=== PATIENT | male | born 1980 | race Caucasian/White ===

== ENCOUNTER 2019-12-19 15:39 | Emergency (ER) | payer OTHER, SELFPAY ==
--- NOTE | ~2019-12-19 | XR_ITS ---
XR finger 5th LT min 2V 12/19/2019 17:06 INDICATION: Left fifth finger pain PROCEDURE: 4 views left fifth finger COMPARISON: No prior studies for comparison. FINDINGS: Fracture, dislocation or subluxation is not identified. The soft tissues appear within norm al limits. No foreign bodies are identified. IMPRESSION: 1: NO ACUTE BONE OR JOINT ABNORMALITY IDENTIFIED. Reviewed, dictated and finalized at location A.
[2019-12-19 15:45] VITALS: BP 165/95; PULSE 73; RESP 14; TEMP 36.3; O2SAT 97
--- NOTE | 2019-12-19 16:57 | ED.WOUNDLAC ---
HPI - Wound/Laceration General Chief Complaint: Wound/Laceration Stated Complaint: lac left pinky Time Seen by Provider: 12/19/19 16:02 Source: patient Mode of arrival: ambulatory Limitations: no limitations History of Present Illness HPI narrative: This is a 39 year old male that presents to the ER for laceration to the left 5th finger sustained just prior to arrival. Reports he was doing dishes and a glass broke. Reports a laceration to the little finger. Reports tingling to the tip of the finger. Reports he is up-to-date on tetanus. Denies decreased ROM or numbness. Related Data Allergies Allergy/AdvReac Type Severity Reaction Status Date / Time No Known Allergies Allergy Verified 12/19/19 17:06 Review of Systems Review of Systems: Narrative: CONSTITUTIONAL: Denies fever SKIN: Reports laceration MUSCULOSKELETAL: Denies joint pain, or myalgia. NEUROLOGIC: Denies numbness All systems reviewed & are unremarkable except as noted in HPI and below PMFSH Past Medical History Medical History (Updated 12/19/19 @ 19:22 by Jackelin Guo PA-C) No active medical problems Social History Social History (Updated 12/19/19 @ 16:59 by Jackelin Guo PA-C) Substance use type: marijuana Gender identity (if verbalized by the patient): Male Exam Narrative: Exam Narrative: GENERAL: Well-appearing, well-nourished, and in no acute distress. HEAD: Normocephalic, atraumatic. EYES: EOMI. EXTREMITIES: Normal range of motion. Left 5th finger with 1cm linear laceration into subcutaneous tissue over the proximal phalanx. Normal sensation. SKIN: Warm, dry, no rash. NEURO: No focal deficits. Alert and oriented x3. PSYCH: Normal mood and affect Course Vital Signs Vital signs: Vital Signs Temperature 97.3 F L 12/19/19 15:45 Pulse Rate 73 12/19/19 15:45 Respiratory Rate 14 12/19/19 15:45 Blood Pressure 165/95 H 12/19/19 15:45 Pulse Oximetry 97 12/19/19 15:45 Temperature 97.3 F L 12/19/19 15:45 Pulse Rate 73 12/19/19 15:45 Respiratory Rate 14 12/19/19 15:45 Blood Pressure 165/95 H 05/29/20 15:45 Pulse Oximetry 97 05/29/20 15:45 Procedures Laceration Laceration 1: Date: 12/19/19 Time: 19:19 Site: hand Side (If applicable): left Size (cm): 1 Description: linear Depth: simple, single layer Local Anesthetic: lidocaine 1% Amount of anesthesia used (mL): 2 Pre-repair: irrigated ====== Skin Level ====== Skin layer closed with: nylon Size (cm): 5-0 Number of sutures: 2 Technique: simple, interrupted ====== Subcutaneous Layer ====== ====== Muscle Layer ====== ====== Tendon Layer ====== Dressing: Antibiotic ointment, Telfa, Kerlix and Coban MDM - Wound/Laceration MDM Narrative Medical decision making narrative: Patient presents the emergency department for laceration to left fifth finger sustained just prior to arrival. Laceration was irrigated and closed with sutures. Left fifth finger x-rays without acute abnormalities. Patient is up-to-date on tetanus. He was educated on wound care. He is to follow-up with primary care doctor. He was given warnings to return to the ER Imaging Data Radiologist's impression: ITS Impressions Finger X-Ray 12/19/19 17:13 IMPRESSION: 1: NO ACUTE BONE OR JOINT ABNORMALITY IDENTIFIED. Critical Care Time Critical Care Time Critical Care Time: No Discharge Plan Discharge Clinical Impression: Laceration Patient Disposition: Home, Self-Care Condition: Stable Instructions: Care For Your Stitches (ED), Laceration (ED) Additional Instructions: Return to the emergency department if you experience fever, redness or swelling of your wound, abnormal drainage from your wound, or any other symptoms that are concerning to you. Apply antibiotic ointment daily. Do not soak the wound. Clean with mild soap and water tanvir
[2019-12-19] MEDS: IBUPROFEN 600 MG TABLET PO (17:06)
[2019-12-19 19:20] VITALS: BP 159/109; PULSE 71; RESP 16; TEMP 36.9; O2SAT 98
== END 2019-12-19 19:28 | disposition home or self-care (01) ==
PROVIDERS: Emergency Provider Emergency Medicine; PCP Internal Medicine
DX: S61.217A Laceration without foreign body of left little finger without damage to nail, initial encounter (principal); W25.XXXA Contact with sharp glass, initial encounter
CPT/HCPCS: 12001; 73140; 99282; A9270

== ENCOUNTER 2021-11-13 18:09 | Emergency (ER) | payer BC, SELFPAY ==
[2021-11-13 18:22] VITALS: BP 147/97; PULSE 82; RESP 18; TEMP 36.4; O2SAT 97
--- NOTE | 2021-11-13 19:29 | ED.WOUNDLAC ---
HPI - Wound/Laceration General Chief Complaint: Wound/Laceration Stated Complaint: finger laceration Time Seen by Provider: 11/13/21 19:00 History of Present Illness HPI narrative: 41-year-old male presents to the emergency room for evaluation of a finger laceration. Patient states he was changing the battery on his computer, when he suffered a laceration to the index finger of his left hand. Related Data Home Medications Medication Instructions Recorded Confirmed albuterol sulfate 2 puff INHALATION Q4H PRN 11/13/21 Allergies Allergy/AdvReac Type Severity Reaction Status Date / Time barley Allergy Unknown Verified 11/13/21 19:53 peanut Allergy Unknown Verified 11/13/21 19:53 sesame seed Allergy Unknown Verified 11/13/21 19:53 tree nut Allergy Unknown Verified 11/13/21 19:53 wheat Allergy Unknown Verified 11/13/21 19:53 Review of Systems Review of Systems: CONSTITUTIONAL: Denies fever, chills, or sweats. EYES: Denies visual changes, redness, or discharge. ENT: Denies rhinorrhea, congestion, sore throat, or otalgia. CARDIOVASCULAR: Denies chest pain, palpitations, or edema. RESPIRATORY: Denies cough or dyspnea. GASTROINTESTINAL: Denies abdominal pain, nausea, vomiting, or diarrhea. GENITOURINARY: Denies dysuria or hematuria. SKIN: Laceration left finger MUSCULOSKELETAL: Denies back pain, joint pain, or myalgia. NEUROLOGIC: Denies headache, numbness, dizziness, or weakness. PSYCHIATRIC: Denies anxiety or depression. PMFSH Past Medical History Medical History No active medical problems Social History Social History Substance use type: marijuana Gender identity (if verbalized by the patient): Male Exam Narrative: GENERAL: Well-appearing, well-nourished, and in no acute distress. HEAD: Normocephalic, atraumatic. EYES: PERRLA and EOMI. CHEST: Clear to auscultation. No respiratory distress. No wheezes rales or rhonchi HEART: Regular rate and rhythm. No murmur heard. Normal peripheral pulses. ABDOMEN: Soft, nontender, nondistended, normal active bowel sounds. EXTREMITIES: Normal range of motion. No edema. Left index finger: The MCP, PIP, and DIP joints. No joint laxity SKIN: Laceration to the medial surface of the left index finger NEURO: No focal deficits. Alert and oriented x3. PSYCH: Normal mood and affect. Course Vital Signs Vital signs: Vital Signs Temperature 36.4 C 11/13/21 18:22 Pulse Rate 82 11/13/21 18:22 Respiratory Rate 18 11/13/21 18:22 Blood Pressure 147/97 H 11/13/21 18:22 Pulse Oximetry 97 11/13/21 18:22 Temperature 36.4 C 11/13/21 18:22 Pulse Rate 82 11/13/21 18:22 Respiratory Rate 18 11/13/21 18:22 Blood Pressure 147/97 H 11/13/21 18:22 Pulse Oximetry 97 11/13/21 18:22 Procedures Laceration Laceration 1: Date: 11/13/21 Time: 20:53 Site: upper extremity Side (If applicable): left Size (cm): 3 Description: flap Depth: simple, single layer Local Anesthetic: lidocaine 1% Amount of anesthesia used (mL): 3 Pre-repair: irrigated and wound margins revised ====== Skin Level ====== Skin layer closed with: nylon Size (cm): 6-0 Number of sutures: 6 Technique: simple, interrupted ====== Subcutaneous Layer ====== ====== Muscle Layer ====== ====== Tendon Layer ====== Dressing: non-stick gauze applied to laceration Discharge Plan Discharge Clinical Impression: Laceration Patient Disposition: Home, Self-Care Condition: Stable Instructions: Antibiotic Form, Laceration (ED) Additional Instructions: Keep wound clean and dry. May apply antibiotic ointment as needed. Stitches to come out in 10 to 14 days. Tylenol and ibuprofen for any pain. Monitor for signs of infection which include: Redness, drainage, swellin
== END 2021-11-13 21:46 | disposition home or self-care (01) ==
PROVIDERS: Emergency Provider Nurse Practitioner Family
DX: S61.211A Laceration without foreign body of left index finger without damage to nail, initial encounter (principal); W26.9XXA Contact with unspecified sharp object(s), initial encounter
CPT/HCPCS: 12002; 99282

== ENCOUNTER 2022-05-18 07:26 | Emergency (ER) | payer BC, SELFPAY ==
--- NOTE | ~2022-05-18 | XR_ITS ---
EXAMINATION: XR chest 2V 05/18/2022 08:31 INDICATION: Chest pressure, anxiety and hypertension PROCEDURE: PA and lateral views of the chest COMPARISON: No prior studies for comparison. FINDINGS: The lungs are clear. The cardiomediastinal silhouette is within normal limits. There are no pleural effusions. There is no pneumothorax suspected. There is dextroscoliosis of the thoracic spine. IMPRESSION: 1: NO ACUTE CARDIOPULMONARY DISEASE. Reviewed, dictated and finalized at location B.
--- NOTE | 2022-05-18 07:34 | ECG_ITS ---
Measurements Intervals [place] Rate: 85 P: 50 MO: 153 QRS: 24 QRSD: 113 T: 25 QT: 389 QTc: 463 Interpretive Statements SINUS RHYTHM INCOMPLETE RIGHT BUNDLE BRANCH BLOCK [90+ ms QRS DURATION, TERMINAL R IN V1/V2, 40+ ms S IN I/aVL/V4/V5/V6] NO PREVIOUS ECG AVAILABLE FOR COMPARISON Electronically Signed On 05-18-2022 14:27:27 CDT by Bc Price M.D.
[2022-05-18 07:37] VITALS: BP 183/115; PULSE 87; RESP 14; TEMP 36.6; O2SAT 100
[2022-05-18 07:41] VITALS: PULSE 84
[2022-05-18 07:50] LABS: Basophils Percent Auto 0.4 % (0.2-1.2); Eosinophils Percent Auto 0.4 % (0-4.4); Hematocrit 41.7 % (42.0-52.0); Hemoglobin 15.3 g/dL (14.0-18.0); Immature Granulocyte Absolute 0.03 K/mm3 (0.00-0.031); Immature Granulocyte Percent A 0.3 % (0-0.5); Lymphocytes Absolute Auto 1.67 K/mm3 (0.9-3.2); Lymphocytes Percent Auto 17.8 % (18.3-44.2); Mean Corpuscular HGB Conc 36.7 g/dl (32-36); Mean Corpuscular Hemoglobin 33.2 pg (26-34); Mean Corpuscular Volume 90.5 fl (80-100); Mean Platelet Volume 10.1 fl (7.4-10.4); Monocytes Percent Auto 10.1 % (2.6-8.5); Neutrophils Absolute Auto 6.6 K/mm3 (1.3-6.7); Platelet Count Result 264 k/mm3 (150-375); Red Blood Count 4.61 M/mm3 (4.6-6.20); Red Cell Distribution Width 12.3 % (11.5-14.5); White Blood Count 9.4 K/mm3 (4.5-10.0)
--- NOTE | 2022-05-18 07:51 | ED.CHESTPAIN ---
HPI - Chest Pain General Chief Complaint: Chest Pain Stated Complaint: right sided CP Time Seen by Provider: 05/18/22 07:51 Source: patient Mode of arrival: ambulatory Limitations: no limitations History of Present Illness HPI narrative: 41 years old white male drove himself to hospital from home because of sudden onset of pain at the right side of the sternum started while sitting on the couch this morning at rest. Like tightness. No radiation. Patient denies aggravating or relieving factors. No family history of coronary artery disease, currently patient on vitamins, smokes marijuana occasionally, drinks almost daily, quite a bit of stress lately. He denies any fever, chills, nausea, vomiting, shortness of breath Related Data Home Medications Medication Instructions Recorded Confirmed albuterol sulfate 90 mcg/actuation 2 puff inhalation Q4H PRN Wheezing 11/13/21 aerosol inhaler Allergies Allergy/AdvReac Type Severity Reaction Status Date / Time barley Allergy Unknown Verified 05/18/22 07:40 peanut Allergy Unknown Verified 05/18/22 07:40 sesame seed Allergy Unknown Verified 05/18/22 07:40 tree nut Allergy Unknown Verified 05/18/22 07:40 wheat Allergy Unknown Verified 05/18/22 07:40 Review of Systems Review of Systems: All systems reviewed & are unremarkable except as noted in HPI and below PMFSH Past Medical History Medical History No active medical problems Social History Social History Substance use type: marijuana Gender identity (if verbalized by the patient): Male Exam Narrative: General appearance: Well-developed, well-nourished, restless, intermittent sighing Skin: Normal color Head: Normocephalic, nontraumatic Eyes: Clear conjunctiva ENT: Oropharynx normal, ears normal, nose normal Neck: Supple, nontender Chest and respiratory: Airway patent, no respiratory distress, no accessory muscle use Heart: Regular rate/rhythm Abdomen: Soft, nontender, no organomegaly, quiet bowel sounds Vascular: Normal peripheral pulses, normal capillary refill. 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 Vital Signs Vital signs: Vital Signs Temperature 36.6 C 05/18/22 07:37 Pulse Rate 87 05/18/22 07:37 Respiratory Rate 14 05/18/22 07:37 Blood Pressure 183/115 H 05/18/22 07:37 Pulse Oximetry 100 05/18/22 07:37 Temperature 36.6 C 05/18/22 07:37 Pulse Rate 72 05/18/22 09:30 Respiratory Rate 18 05/18/22 09:30 Blood Pressure 135/94 H 05/18/22 09:30 Pulse Oximetry 97 05/18/22 09:30 MDM - Chest Pain Differential Diagnosis Differential diagnosis: Likely costochondritis, chest pain and other (Anxiety-like symptoms) Lab Data Result diagrams: 05/18/22 07:44 05/18/22 07:44 Labs: Lab Results 05/18/22 05/18/22 05/18/22 Range/Units 07:44 07:44 07:44 WBC 9.4 (4.5-10.0) K/mm3 RBC 4.61 (4.6-6.20) M/mm3 Hgb 15.3 (14.0-18.0) g/dL Hct 41.7 L (42.0-52.0) % MCV 90.5 (80-100) fl MCH 33.2 (26-34) pg MCHC 36.7 H (32-36) g/dl RDW 12.3 (11.5-14.5) % Plt Count 264 (150-375) k/mm3 MPV 10
[2022-05-18 07:58] LABS: INR 1.1; Prothrombin Time 13.8 Seconds (11.1-14.7)
[2022-05-18 08:00] VITALS: BP 155/108; PULSE 81; RESP 16; O2SAT 100
[2022-05-18 08:00] LABS: Alanine Aminotransferase 161 U/L (6-50); Albumin Level 5.4 g/dL (3.5-5.1); Alkaline Phosphatase 75 U/L (38-126); Anion Gap 16 mmol/L (8-16); Aspartate Amino Transferase 85 U/L (17-59); Blood Urea Nitrogen 16 mg/dL (9-20); Calcium 9.3 mg/dL (8.4-10.2); Carbon Dioxide 24 mmol/L (22-30); Chloride 98 mmol/L (98-107); Estimated CRCL calculation 93 ml/min; Estimated Glomerular Filt Rate > 60; Glucose 111 mg/dL (65-110); Lipase 107 U/L (23-300); Potassium 3.3 mmol/L (3.4-5.0); Sodium 138 mmol/L (137-145)
[2022-05-18 08:12] LABS: Troponin I < 0.012 ng/mL (0.000-0.034)
[2022-05-18 08:19] LABS: D Dimer < 0.27 ug/mL (<0.48)
[2022-05-18 08:22] VITALS: PULSE 85
[2022-05-18] MEDS: METOPROLOL TARTRATE TAB 25 MG, METOPROLOL TARTRATE TAB 12.5 MG 37.5 MG PO (08:22)
--- NOTE | 2022-05-18 08:32 | PC.NURSE ---
Pt. returned from [facility] eating a [employer] breakfast bar. NAD.
[2022-05-18] MEDS: LORazepam INJ (*CRX) 2 MG/ML VIAL 1 MG IV PUSH (09:25)
[2022-05-18 09:30] VITALS: BP 135/94; PULSE 72; RESP 18; O2SAT 97
[2022-05-18 11:11] VITALS: BP 143/107; PULSE 70; RESP 16; O2SAT 98
[2022-05-18 11:36] LABS: Troponin I < 0.012 ng/mL (0.000-0.034)
== END 2022-05-18 11:20 | disposition home or self-care (01) ==
PROVIDERS: Emergency Provider Emergency Medicine
DX: R07.89 Other chest pain (principal); I45.10 Unspecified right bundle-branch block
CPT/HCPCS: 36415; 71046; 80053; 83690; 84484; 85025; 85380; 85610; 85730; 93005; 96374; 99284; A9270; J2060

== ENCOUNTER 2024-09-28 13:09 | Emergency (ER) | payer BC, SELFPAY ==
--- OUTSIDE RECORDS SUMMARY | 2024-09-28 13:11 | XMS_ITS | Clinical Summary ---
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
[2024-09-28 13:26] VITALS: BP 156/96; PULSE 88; RESP 16; TEMP 36.4; O2SAT 100
--- NOTE | 2024-09-28 14:01 | ED_ITS ---
HPI - General Adult General Chief complaint: Unspecified Stated complaint: Painful rash on head, swollen glands Time Seen by Provider: 09/28/24 13:46 Source: patient Mode of arrival: ambulatory Limitations: no limitations History of Present Illness HPI narrative: 44 YEARS OLD WHITE MALE DROVE HIMSELF TO THE EMERGENCY ROOM COMPLAINING OF ITCHING RASH OF THE TOP OF HIS HEAD, SIDE OF HIS NECK AND THE BACK OF HIS NECK AND EARS STARTED 4 DAYS AGO. PATIENT STARTED ON A NEW SHUNT 2 3 DAYS PRIOR TO THAT. PATIENT DENIES ANY ITCHING RASH ANYWHERE ELSE. Related Data Home Medications ?Medication ?Instructions ?Recorded ?Confirmed ?Last Taken ?Type albuterol sulfate 90 mcg/actuation 2 puff inhalation Q4H PRN Wheezing 11/13/21 Unknown History aerosol inhaler Allergies Allergy/AdvReac Type Severity Reaction Status Date / Time barley Allergy Unknown Verified 09/28/24 13:10 peanut Allergy Unknown Verified 09/28/24 13:10 sesame seed Allergy Unknown Verified 09/28/24 13:10 tree nut Allergy Unknown Verified 09/28/24 13:10 wheat Allergy Unknown Verified 09/28/24 13:10 Review of Systems Review of Systems: All systems reviewed & are unremarkable except as noted in HPI and below PMFSH Past Medical History Medical History No active medical problems Social History Social History Substance use type: marijuana Gender identity (if verbalized by the patient): Male Exam Narrative: GENERAL APPEARANCE: WELL-DEVELOPED, WELL-NOURISHED SKIN: HIVES OWN THE SCALP AND EARS BILATERALLY AND BACK OF THE NECK HEAD: NORMOCEPHALIC, NONTRAUMATIC EYES: CLEAR CONJUNCTIVA ENT: OROPHARYNX NORMAL, EARS NORMAL, NOSE NORMAL NECK: SUPPLE, NONTENDER CHEST AND RESPIRATORY: AIRWAY PATENT, NO RESPIRATORY DISTRESS, NO ACCESSORY MUSCLE USE HEART: REGULAR RATE/RHYTHM ABDOMEN: SOFT, NONTENDER, NO ORGANOMEGALY, QUIET BOWEL SOUNDS VASCULAR: NORMAL PERIPHERAL PULSES, NORMAL CAPILLARY REFILL. MUSCULOSKELETAL: NORMAL RANGE OF MOTION, NONTENDER BACK NEUROLOGIC: ALERT AND ORIENTED ?3, WHEEL ALIGNMENT TECHNICIAN IS NORMAL TESTED, NO GROSS MOTOR DEFICIT Course Vital Signs Vital signs: Vital Signs Temperature 36.4 C 09/28/24 13:26 Pulse Rate 88 09/28/24 13:26 Respiratory Rate 16 03/09/25 13:26 Blood Pressure 156/96 H 09/28/24 13:26 Pulse Oximetry 100 09/28/24 13:26 Temperature 36.4 C 09/28/24 13:26 Pulse Rate 88 09/28/24 13:26 Respiratory Rate 16 09/28/24 13:26 Blood Pressure 156/96 H 09/28/24 13:26 Pulse Oximetry 100 09/28/24 13:26 Medical Decision Making MDM Narrative Medical decision making narrative: CONTACT DERMATITIS SECONDARY TO SHARP TO IS MY CONCERN. Differential Diagnosis Differential Diagnosis: CONTACT DERMATITIS Vital Signs Vital Signs: Vital Signs Temperature 36.4 C 09/28/24 13:26 Pulse Rate 88 09/28/24 13:26 Respiratory Rate 16 09/28/24 13:26 Blood Pressure 156/96 H 09/28/24 13:26 Pulse Oximetry 100 09/28/24 13:26 Temperature 36.4 C 09/28/24 13:26 Pulse Rate 88 09/28/24 13:26 Respiratory Rate 16 09/28/24 13:26 Blood Pressure 156/96 H 09/28/24 13:26 Pulse Oximetry 100 09/28/24 13:26 Critical Care Time Critical Care Time Critical Care Time: No Discharge Plan Discharge Clinical Impression: Contact dermatitis Patient Disposition: Home, Self-Care Condition: Stable Instructions: Contact Dermatitis (DC) Additional Instructions: Return if symptoms are worsening , call your family physician for appointment, take Tylenol as as needed for aches and pain, continue home medications. Stop the recent shampo Patient Language: Niuean Prescriptions: New prednisone 20 mg tablet 40 mg PO DAILY 5 Days Qty: 10 0RF Zyrtec 10 mg capsule 10 mg PO BID PRN (Reason: allergy symptoms) Qty: 20 0RF triamcinolone acetonide 0.5 % ointment 1 applic topical BID Qty: 30 0RF No Action albuterol sulfate 90 mcg/actuation HFA aerosol inhaler 2 puff INHALATION Q4H PRN (Reason: Wheezing) cephalexin 500 mg capsule 500 mg PO Q12H Qty: 14 0RF Follow-up/Referrals: PHYSICIAN NOT ON STAFF,NONSTAFF [Non-Staff] -
--- OUTSIDE RECORDS SUMMARY | 2024-09-28 14:03 | XMS_ITS | Clinical Summary ---
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
[2024-09-28] MEDS: predniSONE 20 MG TABLET 60 MG PO (14:07)
[2024-09-28] MEDS: EPINEPHrine HCL INJ 1 MG/ML AMPUL 0.3 MG IM (14:07)
[2024-09-28] MEDS: diphenhydrAMINE HCl CAP 25 MG CAPSULE 50 MG PO (14:07)
[2024-09-28 14:30] VITALS: BP 159/105; PULSE 77; RESP 18; O2SAT 99
[2024-09-28 14:53] VITALS: BP 150/99; PULSE 88; RESP 16; O2SAT 99
== END 2024-09-28 14:55 | disposition home or self-care (01) ==
PROVIDERS: Emergency Provider Emergency Medicine; PCP Internal Medicine
DX: T55.0X1A Toxic effect of soaps, accidental (unintentional), initial encounter (principal); L25.3 Unspecified contact dermatitis due to other chemical products
CPT/HCPCS: 96372; 99283; A9270; J0171; J7512